=== PATIENT | female | born 2000 | race Caucasian/White ===

== ENCOUNTER 2019-12-20 01:23 | Emergency (ER) | payer OTHER ==
[2019-12-20] MEDS ORDERED: Famotidine 20 MG/2 ML SDV IVPUSH ONE (01:31)
[2019-12-20] MEDS ORDERED: methylPREDNISolone Sodium Succinate 125 MG/2 ML SDV IVPUSH ONE (01:31)
--- NOTE | 2019-12-20 01:37 | EDM.PDOC ---
ED HPI GENERAL MEDICAL PROBLEM - General Chief Complaint: Allergic Reaction Stated Complaint: ALLERGIC REACTION Time Seen by Provider: 12/20/19 01:31 Source of Information: Reports: Patient - History of Present Illness INITIAL COMMENTS - FREE TEXT/NARRATIVE: JASBIR HPI: This is a 19 female who presents with urticaria after eating a tenzin. No throat constriction tongue swelling or wheezing. No other complaints patient. Patient took Benadryl prior to arrival PMHX/PSHX: Allergic reactions to bee stings Social History: Negative for tobacco, negative for alcohol, negative for street drugs or marijuana Family history: Hypertension ROS: see chart PE: VS afebrile vital signs stable General: No apparent distress Head: Atraumatic normocephalic no lumps bumps or bruises Eyes: EOMI PERRLA Ears: TMs intact no hemotympanum no signs of infection no mastoid tenderness Nose: No epistaxis nares patent no septal wall hematoma Throat: No pharyngeal erythema or exudate no tonsillar enlargement Neck: Supple, no cervical lymphadenopathy Chest wall: No point tenderness Heart: Regular rate and rhythm without murmur gallop or rub Lungs: Clear to auscultation and percussion without rales rhonchi or wheeze Abdomen: Soft nontender nondistended without guarding rigidity or rebound Neck: No spinal point tenderness full range of motion in all 6 directions Back: No spinal paraspinal or CVA tenderness Extremities: full rom through out. no effusions skin: Warm dry intact use urticarial rash noted neurologic: cranial nerves II through XII intact. No focal motor or sensory deficits noted MDM: Differential diagnosis: Allergic reaction ED course: Administered Solu-Medrol and Pepcid she had already taken 50 mg of Benadryl prior to arrival. No angioedema. The patient was warned not to eat mangoes anymore. She has EpiPen's at home. Diagnosis: Allergic reaction Disposition: Home - Related Data Allergies Allergy/AdvReac Type Severity Reaction Status Date / Time almond Allergy Swelling Verified 12/20/19 01:34 apple Allergy Swelling Verified 12/20/19 01:34 Poultry Allergy Swelling Verified 12/20/19 01:34 cantaloupe Allergy Swelling Uncoded 12/20/19 01:34 Home Meds: Home Meds Control 12/20/19 [History] Ranitidine HCl [Zantac 75] 75 mg PO DAILY 5 Days #5 tablet 12/20/19 [Rx] predniSONE [Prednisone] 40 mg PO DAILY 5 Days #10 tablet 12/20/19 [Rx] ED ROS ALLERGIC REACTION - Review of Systems Review Of Systems: Comprehensive ROS is negative, except as noted in HPI. HEENT: Denies: Throat Swelling Respiratory: Denies: Wheezing Skin: Reports: Urticaria ED EXAM GENERAL NO PERIP PULSE - Physical Exam Exam: See Below (See my dictation) Course - Vital Signs Last Recorded V/S: Last Vital Signs Temp 37.1 C 12/20/19 01:31 Pulse 123 H 12/20/19 01:31 Resp 26 H 12/20/19 01:31 BP 137/101 H 12/20/19 01:31 Pulse Ox 99 12/20/19 01:31 - Orders/Labs/Meds Meds: Medications Discontinued Medications Generic Name Dose Route Start Last Admin Trade Name Freq PRN Reason Stop Dose Admin Famotidine 40 mg 12/20/19 01:31 12/20/19 01:36 Pepcid IVPUSH 12/20/19 01:32 40 mg ONETIME ONE Administration Methylprednisolone Sodium Succinate 125 mg 12/20/19 01:31 12/20/19 01:36 Solu-Medrol IVPUSH 12/20/19 01:32 125 mg ONETIME ONE Administration Departure - Departure Time of Disposition: 02:17 Disposition: Home, Self-Care 01 Clinical Impression: Allergic reaction Qualifiers: Encounter type: initial encounter Qualified Code(s): T78.40XA - Allergy, unspecified, initial encounter - Discharge Information Prescriptions: predniSONE [Prednisone] 40 mg PO DAILY 5 Days #10 tablet Ranitidine HCl [Zantac 75] 75 mg PO DAILY 5 Days #5 tablet Instructions: Allergies, Adult, [id number] Referrals: PCP,None [Primary Care Provider] - Sepsis Event Note - Evaluation Sepsis Screening Result: No Definite Risk - Focused Exam Vital Signs: Vital Signs Temp Pulse Resp BP Pulse Ox 12/20/19 01:31 37.1 C 123 H 26 H 137/101 H 99 Date Exam was Performed: 12/20/19 Time Exam was Performed: 02:17
== END 2019-12-20 02:30 | disposition home or self-care (01) ==
LOC: MW.ED 01:23
DX: T78.1XXA Other adverse food reactions, not elsewhere classified, initial encounter (principal); L50.0 Allergic urticaria; Z91.018 Allergy to other foods
CPT/HCPCS: 96374; 96375; 99283; J2930; S0028; J3490